=== PATIENT | male | born 1965 | race African-American/Black ===

== ENCOUNTER → 2017-07-14 | Outpatient (CLI) | payer OTHER ==
--- NOTE | 2017-07-15 09:42 | REP ---
MRI BRAIN WITHOUT AND WITH CONTRAST: 07/14/2017. CLINICAL HISTORY: Right-sided symptoms of trigeminal neuralgia. TECHNIQUE: Axial T2, FLAIR and T1 images, fat suppressed T2 thin-section images through the posterior fossa, diffusion weighted imaging and ADC mapping sequences with coronal T1 thin section images through the brain stem. After infusion of 18 ml ProHance, fat suppressed axial and coronal images were then obtained. FINDINGS: There are no prior studies. The axial images demonstrate that lateral ventricles are midline, symmetric and without dilatation or displacement. Third and fourth ventricles were also unremarkable. The guillory-white junction differentiation is well maintained. There are only a few scattered punctate hyperintense T2 and FLAIR foci in the subcortical and deep white matter, nonspecific. The cortical stripe is preserved. There is no vascular territory infarct, hemorrhage, mass, mass effect or edema. No extra-axial fluid collection noted. Mastoids show no mucosal abnormality. The ethmoid sinuses show some minor mucosal thickening. The frontal, ethmoid and sphenoid sinuses are clear. Orbits and contents show symmetric optic nerves, extraocular muscles, globes and the ocular gaze is symmetric. In the posterior fossa, the brainstem shows no T2 or FLAIR signal abnormality. Cerebellum is without mass or signal abnormality. No posterior fossa hemorrhage. Basal cisterns were preserved. There is no CP angle mass. However the bilateral vertebral arteries show very tortuous course with the right vertebral artery abutting and flattening the right aspect of the brainstem just below the shana and the left vertebral artery crossing the midline and flattening the ventral surface of the medulla. The basilar artery is also tortuous. There is no aneurysm. No abnormal enhancement in the brain stem with attention to the shana and medulla. Contrast enhanced images confirm the vascular impressions on the shana by the left vertebral artery and shana/medulla junction via the right vertebral artery. IMPRESSION: 1. There is no compelling evidence for white matter tract abnormality in the brainstem or mass in the CP angle. However the tortuous ectatic vertebral arteries are noted compressing the brainstem as described above. This could compress branches of the trigeminal nerve. There are no other significant findings. The scant white matter hyperintense foci in the cerebral hemispheres are nonspecific findings. Globes and intraorbital contents unremarkable. Signed by Shorty Kirkpatrick MD 07/15/2017 02:19 P
== END ==
LOC: M RAD 13:52
PROVIDERS: ATTEND Family Medicine
DX: G50.8 Other disorders of trigeminal nerve (principal)
CPT/HCPCS: 70553; A9576

== ENCOUNTER 2019-02-15 16:33 | Emergency (ER) | payer OTHER ==
[~2019-02-15] VITALS: Ht 177.8 cm; Wt 93.2 kg
[2019-02-15] MEDS ORDERED: CARB10TACH PO (16:50)
[2019-02-15] MEDS ORDERED: KETOROLAC 30 MG/ML VIAL (J1885) IV ONE (17:00)
[2019-02-15] MEDS ORDERED: NS 1,000 ML IV ONE (17:00)
[2019-02-15 17:41] LABS: HEMOGLOBIN 16.9 g/dl (13.5-17.5); MEAN CORPUSCULAR HEMOGLOBIN 31.8 pg (27.0-33.0); MEAN CORPUSCULAR HGB CONC 33.8 g/dl (32.0-36.5); MEAN CORPUSCULAR VOLUME 94.2 fl (80.0-96.0); PLATELET COUNT, AUTOMATED 302 10^3/uL (150-450); RED BLOOD COUNT 5.31 10^6/uL (4.30-6.10); WHITE BLOOD COUNT 5.9 10^3/uL (4.0-10.0)
[2019-02-15] MEDS ORDERED: SILD20TA50 PO (17:46)
[2019-02-15] MEDS ORDERED: SIMV40TA2 PO (17:46)
[2019-02-15] MEDS ORDERED: HYDR12.55 PO (17:46)
[2019-02-15 18:03] LABS: BLOOD UREA NITROGEN 17 MG/DL (7-18); C REACTIVE PROTEIN QUANTITATIV < 0.30 MG/DL (0.00-0.30); CALCIUM LEVEL 9.4 MG/DL (8.5-10.1); CARBON DIOXIDE LEVEL 29 MEQ/L (21-32); CHLORIDE LEVEL 100 MEQ/L (98-107); CREATININE FOR GFR 1.26 MG/DL (0.70-1.30); GLOMERULAR FILTRATION RATE > 60.0 (>56); GLUCOSE, FASTING 93 MG/DL (70-100); POTASSIUM SERUM 4.3 MEQ/L (3.5-5.1); SODIUM LEVEL 137 MEQ/L (136-145)
[2019-02-15] MEDS ORDERED: ISOVUE-370 76% 100ML VIAL (Q9967) As Ordered ONE (18:12)
[2019-02-15 18:48] VITALS: BP 140/92
--- NOTE | 2019-02-15 19:04 | REP ---
Soft-tissue neck CT with IV contrast: History: Swelling, pain, warmth. Rule out abscess. Pain and swelling on the right side. CT contrast dose: 75 ml of intravenous Isovue 370. CT findings: The parotid and submandibular glands are normal and symmetric. Visualized paranasal sinuses are clear. No intraorbital abnormality is seen. Peritonsillar soft tissues are unremarkable. There is no evidence of neck mass or adenopathy. No abscess is seen. Glottic and subglottic airway is unremarkable. Thyroid lobes are normal and symmetric. No bony destructive lesion is seen. Impression: Negative soft-tissue neck CT. No evidence of abscess or mass. Electronically Signed by Mariano Louis MD 02/15/2019 07:21 P
== END 2019-02-15 19:01 | disposition home or self-care (01) ==
LOC: M ED 16:33
DX: G50.0 Trigeminal neuralgia (principal); Z51.81 Encounter for therapeutic drug level monitoring; I10 Essential (primary) hypertension; Z79.899 Other long term (current) drug therapy
CPT/HCPCS: 36415; 70491; 80053; 80156; 85025; 85027; 86140; 87040; 96361; 96374; 99284; J1885; Q9967

== ENCOUNTER → 2019-12-25 | Outpatient (REF) | payer OTHER ==
[~2019-12-25] MED LIST: CARB10TACH PO; HYDR12.55 PO; SILD20TA50 PO; SIMV40TA20 PO
[2019-12-25 15:45] LABS: BASO # 0.1 10^3/uL (0.0-0.2); BASO % 1.2 % (0.0-1.0); EOS # 0.2 10^3/uL (0.0-0.5); HEMATOCRIT 51.3 % (42.0-52.0); LYMPH % 39.4 % (24.0-44.0); MEAN CORPUSCULAR HEMOGLOBIN 31.5 pg (27.0-33.0); MEAN CORPUSCULAR HGB CONC 33.1 g/dl (32.0-36.5); MONO # 0.5 10^3/uL (0.0-0.8); MONO % 9.3 % (0.0-5.0); NEUTROPHILS # 2.3 10^3/uL (1.5-8.5); NEUTROPHILS % 45.9 % (36.0-66.0); PLATELET COUNT, AUTOMATED 312 10^3/uL (150-450)
[2019-12-25 15:51] LABS: ALBUMIN 4.4 GM/DL (3.2-5.2); ALT/SGPT 34 U/L (12-78); BILIRUBIN,TOTAL 0.3 MG/DL (0.2-1.0); BLOOD UREA NITROGEN 21 MG/DL (7-18); CARBAMAZEPINE (TEGRETOL) LEVEL 5.9 UG/ML (4.0-10.0); CARBON DIOXIDE LEVEL 34 MEQ/L (21-32); CHLORIDE LEVEL 103 MEQ/L (98-107); CREATININE FOR GFR 1.21 MG/DL (0.70-1.30); GLOMERULAR FILTRATION RATE > 60.0 (>56); GLUCOSE, FASTING 105 MG/DL (70-100); POTASSIUM SERUM 4.5 MEQ/L (3.5-5.1); SODIUM LEVEL 139 MEQ/L (136-145); TOTAL PROTEIN 7.6 GM/DL (6.4-8.2)
== END ==
LOC: M LABNEURO 15:20
PROVIDERS: ATTEND Psychiatry & Neurology Neurology
DX: G50.0 Trigeminal neuralgia (principal)

== ENCOUNTER 2021-04-19 09:52 | Emergency (ER) | payer OTHER ==
[~2021-04-19] VITALS: Ht 180.3 cm; Wt 93.3 kg
[2021-04-19] MEDS ORDERED: ACETAMINOPHEN 650MG ER TAB (TYLENOL ARTHRITIS) PO SCH ×2 (11:40→12:00)
--- NOTE | 2021-04-19 12:04 | REP ---
INDICATION: ATRAUMATIC PAIN ACHILLES ENTHESIS. COMPARISON: None. TECHNIQUE: Four views FINDINGS: No acute fracture or destructive osseous lesion. The mortise is intact. IMPRESSION: Negative exam <Electronically signed by Jared Griffith > 04/19/21 [id number]
--- NOTE | 2021-04-19 12:04 | REP ---
INDICATION: ATRAUMATIC RIGHT KNEE PAIN ?ARTHRITIS COMPARISON: None TECHNIQUE: Four views, no sunrise view FINDINGS: Small marginal osteophytes are seen arising from the articular surface of the patella. The compartments are symmetric and relatively well maintained. Patellofemoral joint space narrowing is suspected, however, there is no sunrise view. There is no acute fracture. IMPRESSION: Mild chronic changes and exam limitations as described above. <Electronically signed by Jared Griffith > 04/19/21 1200
[2021-04-19 12:45] VITALS: BP 145/82
[2021-04-19] MEDS ORDERED: ACET650T61 PO (12:49)
== END 2021-04-19 12:57 | disposition home or self-care (01) ==
LOC: M ED 09:52
DX: M17.11 Unilateral primary osteoarthritis, right knee (principal); M76.61 Achilles tendinitis, right leg; I10 Essential (primary) hypertension; E78.5 Hyperlipidemia, unspecified; G89.29 Other chronic pain; M54.2 Cervicalgia; M54.5 Low back pain; Z79.899 Other long term (current) drug therapy

== ENCOUNTER → 2021-05-07 | Outpatient (CLI) | payer OTHER ==
[~2021-05-07] MED LIST changes: +ACET650T61 PO
--- NOTE | 2021-05-07 15:29 | REP ---
INDICATION: CERVICALALGIA. COMPARISON: Comparison is made with CT study of the neck from February 15, 2019. TECHNIQUE: Sagittal and axial T1 and T2-weighted scans are acquired in the usual fashion with and without fat saturation. Sequences include spin echo, turbo spin-echo, and STIR imaging sequences. FINDINGS: There is straightening of the normal cervical lordosis. Cervical vertebral body heights are preserved. Alignment is normal. The cervical cord is normal in course, caliber and signal intensity on T1 and T2 weighted scans. Craniocervical junction is unremarkable. No extra vertebral abnormality is observed. Axial and sagittal images at the C2-3 level demonstrate minimal diffuse disc bulging. No other finding. At C3-4, there is degenerative disc narrowing and desiccation. Posterior disc bulging is seen diffusely and there is posterior osteophytic ridging. This indents the ventral margin of the thecal sac. Canal size is borderline at L3-4. The midline AP dimension of the thecal sac at this level is 7.8 mm. There is mild bilateral uncovertebral spurring. Mild bilateral neural foraminal narrowing is present as result. At C4-C5, there is a right posterior focal disc protrusion with associated osteophytic ridging. This effaces the ventral subarachnoid space in combination with diffuse bulging of the remainder of the disc. There is mild right-sided uncovertebral spurring and right-sided neural foraminal narrowing is present. Canal size is borderline. At C5-C6, diffuse disc bulging. Moderate bilateral uncovertebral spurring and neural foraminal narrowing is present at C5-6. No cord compressive lesion is seen. At C6-C7, there is mild central disc bulging. Neural foramina appear adequate. The C7-T1 disc level is unremarkable. IMPRESSION: Degenerative disc disease most pronounced at C3-4 C4-5 and C5-6. Canal size is borderline at C3-4 and C4-5. There is a right posterior focal disc protrusion at C4-5. Bilateral neural foraminal narrowing is noted as above. <Electronically signed by Javier Louis > 05/07/21 [id number]
--- NOTE | 2021-05-07 16:15 | REP ---
INDICATION: CERVICALGIA, LOW BACK PAIN. COMPARISON: No comparison lumbar spine imaging. Comparison is made with images from CT study of the abdomen and pelvis dated September 02, 2014.. TECHNIQUE: Sagittal and axial T1 and T2-weighted scans are acquired in the usual fashion with and without fat saturation. Sequences include spin echo, turbo spin-echo, and STIR imaging sequences. FINDINGS: There is straightening of the normal lumbar lordosis. Lumbar vertebral body heights are preserved. There is no evidence of spondylolysis or spondylolisthesis. The tip of the conus medullaris is normal in position and appearance at T12-L1. Parapelvic cyst suspected in the right and left kidney. No other extra spinal abnormality is seen. Normal caliber aorta is observed. Axial and sagittal images taken at the L1-2 disc level demonstrate minimal diffuse disc bulging. No focal disc protrusion is seen. No spinal stenosis or foraminal narrowing is seen. At L2-3, there is also mild diffuse disc bulging and some disc space narrowing. There is a right lateral disc protrusion at the L2-3 level which contacts the extradural segment of the adjacent root. The lateral aspect of the right neural foramen is somewhat narrowed by disc bulging as well. No spinal stenosis. There is some facet hypertrophy bilaterally at L2-3. At L3-4, there is degenerative disc narrowing and diffuse disc bulging. Facet hypertrophy is noted. At the L3-4 level, there is also a right lateral disc bulge which contacts the adjacent extradural root sleeve. The right the lateral neural foramen at 3 4 is narrowed by disc bulging as well. At L4-5, there is advanced degenerative disc narrowing. Moderate posterior osteophytic ridging and diffuse disc bulging is seen indenting the ventral margin of the thecal sac. There is mild central canal stenosis as result. There is facet hypertrophy bilaterally, left greater than right. The foraminal segments of the discs bulge as well in there is mild bilateral neural foraminal narrowing. The CT study shows a vacuum phenomenon at this disc. At L5-S1, there is no evidence of disc protrusion. There is mild facet hypertrophy bilaterally. No neural foraminal narrowing is seen. IMPRESSION: Advanced degenerative spondylosis changes. There are right lateral disc protrusions at L2-3 and L3-4. There is mild bilateral neural foraminal narrowing at L4-5. Facet arthropathy is noted as above. <Electronically signed by Javier Louis > 05/07/21 [id number]
== END ==
LOC: M PLAIMG 14:05
PROVIDERS: ATTEND Family Medicine
DX: M50.21 Other cervical disc displacement, high cervical region (principal); M51.26 Other intervertebral disc displacement, lumbar region; M47.816 Spondylosis without myelopathy or radiculopathy, lumbar region; M50.321 Other cervical disc degeneration at C4-C5 level; M50.322 Other cervical disc degeneration at C5-C6 level; M50.323 Other cervical disc degeneration at C6-C7 level

== ENCOUNTER → 2021-10-01 | Outpatient (CLI) | payer OTHER ==
--- NOTE | 2021-10-02 02:17 | REP ---
INDICATION: RT HIP PAIN. COMPARISON: None. TECHNIQUE: Two AP views of the mid to lower pelvis including bilateral hips FINDINGS: Hip joints are symmetric and demonstrate increased sclerosis along the acetabular roof and very subtle marginal spurring with minimal joint space narrowing. No periarticular calcifications. The proximal femoral contours are normal and there is no evidence for acute injury. Vascular calcifications within the pelvis and scrotum are suspected. IMPRESSION: Mild symmetric age-related changes to the bilateral hips. <Electronically signed by Carson Light > 10/02/21 0210
== END ==
LOC: M SOG 14:52
PROVIDERS: ATTEND Orthopaedic Surgery Adult Reconstructive Orthopaedic Surgery
DX: M25.551 Pain in right hip (principal); M16.0 Bilateral primary osteoarthritis of hip

== ENCOUNTER → 2021-10-20 | Outpatient (CLI) | payer OTHER ==
--- NOTE | 2021-10-20 14:36 | REP ---
INDICATION: IMPINGEMENT SYNDROME OF RIGHT SHOULDER. COMPARISON: None. TECHNIQUE: Coronal oblique T1 and fat suppressed T2. Sagittal oblique fat suppressed T2. Axial [id number] and T2 FLASH. FINDINGS: There is mild to moderate hypertrophic degenerative change seen involving the acromioclavicular joint. The acromion process is type 2. There is no evidence of abnormal coracohumeral or coracoacromial ligamentous thickening. Patchy and linear T2 hyper signal is seen throughout the supraspinatus tendon without evidence of musculotendinous retraction or significant muscular atrophy. There is mild patchy T2 hyper signal seen in the subscapularis tendon. Biceps tendon resides within the bicipital groove. There is no glenohumeral joint effusion or abnormal fluid the subcoracoid recess. IMPRESSION: AC joint DJD and supraspinatus tendinitis/tendinosis as described above. There is evidence of mild subscapularis tendinitis/tendinosis. <Electronically signed by Jared Griffith > 10/20/21 [id number]
== END ==
LOC: M PLAIMG 13:18
PROVIDERS: ATTEND Orthopaedic Surgery Sports Medicine
DX: M75.41 Impingement syndrome of right shoulder (principal); M19.011 Primary osteoarthritis, right shoulder

== ENCOUNTER → 2021-12-25 | Outpatient (CLI) | payer OTHER ==
[~2021-12-25] MED LIST changes: +ISOVUE-300 61% 50ML VIAL As Ordered ONE; +LIDOCAINE 1% MDV 20ML VIAL As Ordered ONE; +PROHANCE 279.3MG/ML 5ML VIAL As Ordered ONE
== END ==
LOC: M RADPRO 06:48
PROVIDERS: ATTEND Orthopaedic Surgery Adult Reconstructive Orthopaedic Surgery
DX: R93.7 Abnormal findings on diagnostic imaging of other parts of musculoskeletal system (principal); M24.151 Other articular cartilage disorders, right hip
CPT/HCPCS: 27093; 73723; 77002; A9576; Q9967

== ENCOUNTER 2023-09-23 04:14 | Emergency (ER) | payer OTHER ==
[~2023-09-23] VITALS: Ht 177.8 cm; Wt 95.5 kg
[~2023-09-23 04:14] MED LIST changes: -ISOVUE-300 61% 50ML VIAL As Ordered ONE; -LIDOCAINE 1% MDV 20ML VIAL As Ordered ONE; -PROHANCE 279.3MG/ML 5ML VIAL As Ordered ONE
[2023-09-23] MEDS ORDERED: NIRM1TAB PO (07:12)
[2023-09-23 07:16] VITALS: O2SAT 93
[2023-09-23 07:22] VITALS: BP 126/79; TEMP 100; O2SAT 97
== END 2023-09-23 07:31 | disposition home or self-care (01) ==
LOC: M ED 04:14
DX: U07.1 COVID-19 (principal); I10 Essential (primary) hypertension; Z79.1 Long term (current) use of non-steroidal anti-inflammatories (NSAID); Z79.899 Other long term (current) drug therapy

== ENCOUNTER → 2024-01-06 | Outpatient (REF) | payer OTHER ==
[~2024-01-06] MED LIST changes: +NIRM1TAB PO
[2024-01-06 22:08] LABS: APPEARANCE, URINE CLEAR (CLEAR); BACTERIA, URINE AUTO NEGATIVE (NEGATIVE); BILIRUBIN, URINE AUTO NEGATIVE (NEGATIVE); BLOOD, URINE BLOOD NEGATIVE (NEGATIVE); COLOR, URINE YELLOW (YELLOW); GLUCOSE, URINE (UA) AUTO NEGATIVE (NEGATIVE); KETONE, URINE AUTO NEGATIVE (NEGATIVE); LEUKOCYTE ESTERASE, URINE AUTO NEGATIVE (NEGATIVE); MUCUS, URINE SMALL (NEGATIVE); NITRITE, URINE AUTO NEGATIVE (NEGATIVE); PROTEIN, URINE AUTO NEGATIVE (NEGATIVE); RBC, URINE AUTO 1 /HPF (0-3); SPECIFIC GRAVITY URINE AUTO 1.021 (1.002-1.035); SQUAMOUS EPITHELIAL CELL UR AU 0 /HPF (0-6); WBC, URINE AUTO 0 /HPF (0-3)
== END ==
LOC: M LAB REF 21:12
PROVIDERS: ATTEND Physician Assistant Medical
DX: N39.0 Urinary tract infection, site not specified (principal)

== ENCOUNTER 2024-02-03 11:16 | Day surgery (SDC) | payer OTHER ==
[~2024-02-03] VITALS: Ht 180.3 cm; Wt 98.0 kg
[~2024-02-03 11:16] MED LIST changes: +CARB20TA PO
[2024-02-03] MEDS: NS 1,000 ML IV ONE (11:46)
[2024-02-03] MEDS ORDERED: propofoL 500 MG/50 ML VIAL As Ordered ONE (12:32)
[2024-02-03 12:47] VITALS: TEMP 97.4
[2024-02-03 13:09] VITALS: BP 115/71; O2SAT 99
== END 2024-02-03 13:25 | disposition home or self-care (01) ==
LOC: M OPP 11:16
PROVIDERS: ATTEND Internal Medicine Gastroenterology
DX: D12.6 Benign neoplasm of colon, unspecified (principal); K64.8 Other hemorrhoids; R19.5 Other fecal abnormalities; I10 Essential (primary) hypertension; G47.9 Sleep disorder, unspecified; Z79.02 Long term (current) use of antithrombotics/antiplatelets; Z79.1 Long term (current) use of non-steroidal anti-inflammatories (NSAID); Z79.899 Other long term (current) drug therapy

== ENCOUNTER → 2024-04-12 | Outpatient (REF) | payer OTHER | LOC: M LAB REF 16:11 | PROVIDERS: ATTEND Nurse Practitioner Family | DX: R30.0 Dysuria (principal); R10.30 Lower abdominal pain, unspecified ==

== ENCOUNTER → 2025-02-02 | Outpatient (CLI) | payer OTHER | LOC: M RAD 14:30 | PROVIDERS: ATTEND Nurse Practitioner Family | DX: M54.2 Cervicalgia (principal); M47.816 Spondylosis without myelopathy or radiculopathy, lumbar region; M48.061 Spinal stenosis, lumbar region without neurogenic claudication; M51.26 Other intervertebral disc displacement, lumbar region; M24.28 Disorder of ligament, vertebrae; D17.79 Benign lipomatous neoplasm of other sites ==